=== PATIENT | female | born 1965 | race Caucasian/White ===

== ENCOUNTER 2022-11-07 10:20 | Outpatient (OUT) | payer OTHER, SELFPAY ==
--- NOTE | 2022-11-07 10:23 | MM_ITS ---
Patient: JAQUAN WILLETT Exam Date: 11/07/2022 : 1965 Gender:F Ordering : DR GURMEET MEYER Admission #: [id number] Family : ED BETHEA Order #: [id number] CLICK HERE TO VIEW EXAM RADIOLOGY REPORT PROCEDURE: MM TOMOSYNTHESIS SCREENING BI COMPARISON: MG MAMM SCREEN 3D HALIMA CAD, 11/06/2021. MG MAMM SCREEN 3D HALIMA CAD, 10/18/2020. INDICATIONS: Screening Calculator Name NCI Breast Cancer Risk Assessment Tool 5 Year Breast Cancer Risk 1.20% Lifetime Breast Cancer Risk 6.70% Personal Breast Cancer No Personal Ovarian Cancer No Treatments None Family Cancers Father with bone cancer at age ~50. LOCATION: [facility] BREAST COMPOSITION: Heterogeneously dense,which may obscure small masses. FINDINGS: DIAGNOSTIC CATEGORY 1--NEGATIVE. NO CHANGE FROM COMPARISON ASSESSMENT. Scattered benign-appearing calcifications are present. Scattered benign-appearing lymph nodes are present. RIGHT BREAST: No significant suspicious finding. LEFT BREAST: No significant suspicious finding. RECOMMENDATIONS: ROUTINE MAMMOGRAM AND CLINICAL EVALUATION IN 12 MONTHS. PLEASE NOTE: A NORMAL MAMMOGRAM DOES NOT EXCLUDE THE POSSIBILITY OF BREAST CANCER. A CLINICALLY SUSPICIOUS PALPABLE LUMP SHOULD BE BIOPSIED. Dictated by: Momo Kasper MD on 11/07/2022 at 11:54 Approved by: Momo Kasper MD on 11/07/2022 at 11:55
== END 2022-11-07 10:21 | disposition home or self-care (01) ==
LOC: MAMMO 10:20
PROVIDERS: PCP Nurse Practitioner Family; Visit Provider Internal Medicine
DX: Z12.31 Encounter for screening mammogram for malignant neoplasm of breast (principal); Z80.8 Family history of malignant neoplasm of other organs or systems
CPT/HCPCS: 77063; 77067

== ENCOUNTER 2023-11-09 09:53 | Outpatient (OUT) | payer OTHER, SELFPAY ==
--- NOTE | 2023-11-09 09:55 | MM_ITS ---
Patient Name: JAQUAN WILLETT MR#: [id number] : 1965 Exam Date: 11/09/2023 Ordering Doctor: DR ED BETHEA RADIOLOGY REPORT PROCEDURE: MM TOMOSYNTHESIS SCREENING BI COMPARISON: MM TOMOSYNTHESIS SCREENING BI, 11/07/2022. MG MAMM SCREEN 3D HALIMA CAD, 11/06/2021. MG MAMM SCREEN 3D HALIMA CAD, 10/18/2020. MG MAMM HALIMA SCRN W CAD DIG, 06/29/2013. INDICATIONS: Screening Calculator Name NCI Breast Cancer Risk Assessment Tool 5 Year Breast Cancer Risk 1.30% Lifetime Breast Cancer Risk 6.60% Personal Breast Cancer No Personal Ovarian Cancer No Treatments None Family Cancers Father with bone cancer at age ~50. LOCATION: [facility] BREAST COMPOSITION: The breasts are heterogeneously dense,which may obscure small masses. FINDINGS: DIAGNOSTIC CATEGORY 1--NEGATIVE. RIGHT BREAST: No significant suspicious finding. No significant change has occurred. LEFT BREAST: No significant suspicious finding. No significant change has occurred. RECOMMENDATIONS: ROUTINE MAMMOGRAM AND CLINICAL EVALUATION IN 12 MONTHS. PLEASE NOTE: A NORMAL MAMMOGRAM DOES NOT EXCLUDE THE POSSIBILITY OF BREAST CANCER. A CLINICALLY SUSPICIOUS PALPABLE LUMP SHOULD BE BIOPSIED. Dictated by: Ayden Sellers M.D. on 11/10/2023 at 15:23 Approved by: Ayden Sellers M.D. on 11/10/2023 at 15:29
== END 2023-11-09 09:54 | disposition home or self-care (01) ==
PROVIDERS: PCP Nurse Practitioner Family; Visit Provider Nurse Practitioner Family
DX: Z12.31 Encounter for screening mammogram for malignant neoplasm of breast (principal); Z80.8 Family history of malignant neoplasm of other organs or systems
CPT/HCPCS: 77063; 77067

== ENCOUNTER 2024-05-13 01:45 | Emergency (ER) | payer OTHER, SELFPAY ==
[2024-05-13 01:51] VITALS: BP 138/78; PULSE 78; TEMP 36.5; O2SAT 98; BMI 22.8
[2024-05-13 02:12] LABS: Bilirubin Urine NEGATIVE (NEGATIVE); Blood Urine LARGE (NEGATIVE); Clarity Urine CLEAR (CLEAR); Color Urine LT. YELLOW (YELLOW); Glucose Urine UA NEGATIVE (NEGATIVE); Ketones Urine NEGATIVE (NEGATIVE); Leukocyte Esterase Urine MODERATE (NEGATIVE); Nitrite Urine NEGATIVE (NEGATIVE); Protein Urine 100 mg/dL (NEG/TRACE); Specific Gravity Urine <=1.005 (1.005-1.025); Urobilinogen Urine 0.2 EU/dL (0.2-1.0); pH Urine 6.5 (5.0-9.0)
--- NOTE | 2024-05-13 02:20 | ED.FEMALEGU1 ---
HPI - Female Genitourinary General Chief complaint: Urogenital-Female Stated complaint: FREQUENT URINATION, ABDOMINAL PAIN Time Seen by Provider: 05/13/24 02:13 Source: patient Mode of arrival: walk-in Limitations: no limitations History of Present Illness HPI Narrative: This 59-year-old female who states she has stage II kidney disease presents for evaluation of acute onset of urinary frequency urgency dysuria and hematuria. Symptoms started earlier this evening. She denies any recent sexual intercourse or swimming or hot tub use. She has not had any fevers or chills. She denies any nausea or vomiting. She denies any flank pain. She has fullness in her bladder and states it feels like her bladder is falling out. She is anxious and concerned because of her kidney disease and states she is having a CT scan of her kidneys with contrast at [facility] later this week. She denies any chest pain or shortness of breath. Related Data Allergies Allergy/AdvReac Type Severity Reaction Status Date / Time No Known Drug Allergies Allergy Verified 05/13/24 01:54 Review of Systems ROS Status of ROS 10 or more systems reviewed and unremarkable except as noted in history and below PFSH PFSH Social History Little interest or pleasure in doing things: not at all Feeling down, depressed, or hopeless: not at all Exam Narrative Exam Narrative: Vital signs and Nursing Notes reviewed: Patient is afebrile with a normal pulse, normal blood pressure, she is not hypoxic with pulse ox of 97% on room air General: Awake, alert, oriented, anxious female, no respiratory distress she is sitting at the edge of the bed HEENT: Normocephalic atraumatic, mucous membranes are moist and pink, eyes are clear, normal conjunctiva, vision is grossly intacty Chest: Lungs are clear to auscultation with good air entry, there is no wheezing rhonchi or rales appreciated no accessory muscle use, patient is speaking in complete sentences-no chest wall tenderness to palpation CVS: Regular rate and rhythm S1-S2, no murmurs rubs or gallops, pulses are brisk and equal bilaterally ABD: Soft, nondistended, tenderness over the urinary bladder. There is no flank tenderness Extremities: Moving all extremities, no lower extremity tenderness or swelling noted, negative Homans' sign, pulses are brisk and equal bilaterally Skin: Normal in appearance without rash,pallor, petechiae or purpura Neuro: No focal deficits Constitutional Vital Signs, click to edit/add: Last Vital Signs Temp 97.7 F 05/13/24 01:51 Pulse 78 05/13/24 01:51 Resp 18 05/13/24 01:51 BP 138/78 05/13/24 01:51 Pulse Ox 98 05/13/24 01:51 O2 Del Method Room Air 05/13/24 01:51 Course Vital Signs Vital signs: Vital Signs Temperature 97.7 F 05/13/24 01:51 Pulse Rate 78 05/13/24 01:51 Respiratory Rate 18 05/13/24 01:51 Blood Pressure 138/78 05/13/24 01:51 Pulse Oximetry 98 05/13/24 01:51 Oxygen Delivery Method Room Air 05/13/24 01:51 Temperature 97.7 F 05/13/24 01:51 Pulse Rate 78 05/13/24 01:51 Respiratory Rate 18 05/13/24 01:51 Blood Pressure 138/78 05/13/24 01:51 Pulse Oximetry 98 05/13/24 01:51 Oxygen Delivery Method Room Air 05/13/24 01:51 MDM - Female Genitourinary MDM Narrative Medical decision making narrative: This 59-year-old female who has been diagnosed with stage II kidney failure presents for evaluation of urinary frequency urgency and dysuria. She started having hematuria prior to arrival. She has not had a fever. She has no nausea or vomiting. She has no flank pain. She is extremely anxious about her kidney disease. She states she was scheduled to have a CT scan of her abdomen and pelvis with IV contrast at [facility] next week. I told her that we would check her kidneys and give her some fluids and antibiotics for her infection. An IV was placed and routine labs are ordered. Her white count is 12.2. She has a stable hemoglobin. Electrolytes are normal with a GFR greater than 56. The results of her labs were discussed with her. Her urine is positive for blood and blood cells as well as leukocyte esterase. It was negative for nitrites. She was medicated with IV fluids, morphine as she did not want any NSAIDs due to her kidney disease, IV Rocephin and oral Pyridium. Her symptoms improved while in the emergency department. She was discharged home with Keflex and prescription for Pyridium. She was encouraged to drink plenty of fluids and return to the emergency department for fever, flank pain, abdominal pain or any concerns. Lab Data Labs: Lab Results 05/13/24 05/13/24 Range/Units 01:55 02:45 WBC 12.2 H (4.0-11.0) 10^3/uL RBC 4.55 (4.20-5.40) 10^6/uL Hgb 13.8 (12.0-16.0) g/dL Hct 40.5 (36.0-48.0) % MCV 89.0 (81.0-99.0) fL MCH 30.3 (26.7-34.0) pg MCHC 34.1 (29.9-35.2) g/dL RDW 11.7 (11.0-15.0) % Plt Count 247 (150-450) 10^3/uL MPV 10.1 (9.5-13.5) fL Neut % (Auto) 74.8 (43.0-75.0) % Lymph % (Auto) 19.4 L (20.5-60.0) % [place] % (Auto) 4.7 (1.7-12.0) % Eos % (Auto) 0.6 L (0.9-7.0) % Baso % (Auto) 0.3 (0.2-2.0) % Neut # (Auto) 9.1 H (1.4-6.5) 10^3/uL Lymph # (Auto) 2.4 (1.2-3.8) 10^3/uL [place] # (Auto) 0.6 (0.3-0.8) 10^3/uL Eos # (Auto) 0.1 (0.0-0.7) 10^3/uL Baso # (Auto) 0.0 (0.0-0.1) 10^3/uL Abs Immat Gran (auto) 0.03 (0.00-0.03) 10^3/uL Imm/Tot Granulo (auto) 0.2 (0.0-0.5) % Sodium 137 (136-145) mmol/L Potassium 4.0 (3.5-5.1) mmol/L Chloride 102 (98-107) mmol/L Carbon Dioxide 27.1 (21.0-32.0) mmol/L Anion Gap 11.9 BUN 18.0 (7.0-18.0) mg/dL Creatinine 1.00 (0.55-1.02) mg/dL Est GFR ( Amer) >60 (>=60 mL/min/1.73m^2) Est GFR (Non-Af Amer) 56 L (>=60 mL/min/1.73m^2) BUN/Creatinine Ratio 18.0 Glucose 114 H (74-106) mg/dL Calcium 9.2 (8.5-10.1) mg/dL Total Bilirubin 0.4 (0.2-1.0) mg/dL AST 22 (15-37) U/L ALT 30 (14-59) U/L Alkaline Phosphatase 95 (46-116) U/L Total Protein 7.0 (6.4-8.2) g/dL Albumin 3.8 (3.4-5.0) g/dL Globulin 3.2 g/dL Albumin/Globulin Ratio 1.2 Urine Color Lt. yellow (YELLOW) Urine Clarity Clear (CLEAR) Urine pH 6.5 (5.0-9.0) Ur Specific Clarissa <=1.005 A (1.005-1.025) Urine Protein 100 A (NEG/TRACE) mg/dL Urine Glucose (UA) Negative (NEGATIVE) mg/dL Urine Ketones Negative (NEGATIVE) mg/dL Urine Occult Blood Large A (NEGATIVE) Urine Nitrite Negative (NEGATIVE) Urine Bilirubin Negative (NEGATIVE) Urine Urobilinogen 0.2 (0.2-1.0) EU/dL Ur Leukocyte Esterase Moderate A (NEGATIVE) Urine RBC 20-50 A (0-2) #/HPF Urine WBC 20-50 A (NONE SEEN) #/HPF Ur Squamous Epith Cells Few A (NONE/RARE) #/LPF Urine Crystals None seen (None Seen) #/HPF Urine Bacteria Large A (NONE SEEN) #/HPF Urine Casts None seen (NONE SEEN) #/LPF Urine Mucus None seen (NONE SEEN) Ur Culture Indicated? Yes Discharge Plan Discharge Chief Complaint: Urogenital-Female Clinical Impression: Urinary tract infection, Acute hemorrhagic cystitis Patient Disposition: Home, Self-Care Time of Disposition Decision: 04:00 Condition: Good Print Language: Kinyarwanda Instructions: Urinary Tract Infection in Women (DC) Referrals: ED BETHEA [Primary Care Provider] - 1 week Discharge Date/Time: 05/13/24 04:11
[2024-05-13 02:27] LABS: Urine Microscopic Indicated YES
[2024-05-13] MEDS: ONDANSETRON PF 4 MG/2 ML VIAL IV (02:54)
[2024-05-13] MEDS: PHENAZOPYRIDINE 100 MG TABLET 200 MG PO (02:54)
[2024-05-13 02:55] LABS: WBC Urine 20-50 #/HPF (NONE SEEN)
[2024-05-13] MEDS: CEFTRIAXONE 1,000 MG in 0.9 % SODIUM CHLORIDE 50 ML 100 MG IV (02:55)
[2024-05-13] MEDS: 0.9 % SODIUM CHLORIDE 500 ML IV (02:55)
[2024-05-13 02:56] LABS: Mucus Urine NONE SEEN (NONE SEEN)
[2024-05-13] MEDS: MORPHINE SULFATE 4 MG/ML VIAL IV (02:56)
[2024-05-13 02:57] LABS: Bacteria Urine LARGE #/HPF (NONE SEEN); Cast Seen? NONE SEEN #/LPF (NONE SEEN); Crystals Seen? None Seen #/HPF (None Seen); RBC Urine 20-50 #/HPF (0-2); Squamous Epithelial Cell Urine FEW #/LPF (NONE/RARE); Urine Culture Indicated YES
[2024-05-13 03:10] LABS: Basophils Percent Auto 0.3 % (0.2-2.0); Eosinophils Absolute Auto 0.1 10^3/uL (0.0-0.7); Eosinophils Percent Auto 0.6 % (0.9-7.0); Hematocrit 40.5 % (36.0-48.0); Hemoglobin 13.8 g/dL (12.0-16.0); Immature Granulocytes Abs Auto 0.03 10^3/uL (0.00-0.03); Immature Granulocytes Pct Auto 0.2 % (0.0-0.5); Lymphocytes Absolute Auto 2.4 10^3/uL (1.2-3.8); Lymphocytes Percent Auto 19.4 % (20.5-60.0); Mean Corpuscular HGB Conc 34.1 g/dL (29.9-35.2); Mean Corpuscular Hemoglobin 30.3 pg (26.7-34.0); Mean Platelet Volume 10.1 fL (9.5-13.5); Monocytes Absolute Auto 0.6 10^3/uL (0.3-0.8); Monocytes Percent Auto 4.7 % (1.7-12.0); Neutrophils Absolute Auto 9.1 10^3/uL (1.4-6.5); Neutrophils Percent Auto 74.8 % (43.0-75.0); Platelet Count 247 10^3/uL (150-450); Red Blood Count 4.55 10^6/uL (4.20-5.40); Red Cell Distribution Width 11.7 % (11.0-15.0); White Blood Count 12.2 10^3/uL (4.0-11.0)
[2024-05-13 03:54] LABS: Alanine Aminotransferase 30 U/L (14-59); Albumin Globulin Ratio 1.2; Albumin Level 3.8 g/dL (3.4-5.0); Alkaline Phosphatase 95 U/L (46-116); Anion Gap 11.9; Aspartate Amino Transferase 22 U/L (15-37); Bilirubin Total 0.4 mg/dL (0.2-1.0); Calcium 9.2 mg/dL (8.5-10.1); Carbon Dioxide 27.1 mmol/L (21.0-32.0); Chloride 102 mmol/L (98-107); Estimated GFR (African America >60 (>=60 mL/min/1.73m^2); Estimated GFR (Non-African Ame 56 (>=60 mL/min/1.73m^2); Globulin 3.2 g/dL; Glucose 114 mg/dL (74-106); Sodium 137 mmol/L (136-145)
[2024-05-13 06:40] LABS: BOX Test Reference Lab FRMC; BOX Test Sent Out URINE CX
--- NOTE | 2024-05-15 16:55 | PC.NURSE ---
Patient urine culture completed and reviewed by Eri WILEY. Patient was already placed on Keflex in the ER, no change in treatment.
--- NOTE | 2024-05-19 14:48 | PC.NURSE ---
Patient Urine culture reviewed By Lola PACHECO and antibiotic change to Bactrim DS bidx5 days. patient updated on status and plan of care. called [facility] with script.
== END 2024-05-13 04:11 | disposition home or self-care (01) ==
PROVIDERS: Emergency Provider Emergency Medicine; PCP Nurse Practitioner Family
DX: N30.01 Acute cystitis with hematuria (principal); N19 Unspecified kidney failure
CPT/HCPCS: 36415; 80053; 81001; 85025; 87086; 87150; 87186; 96365; 96375; 99284; J0696; J2270; J2405

== ENCOUNTER 2024-11-09 09:52 | Outpatient (OUT) | payer OTHER, SELFPAY ==
--- OUTSIDE RECORDS SUMMARY | 2024-11-09 09:53 | XMS_ITS | Encounter Summary ---
Author Organization [facility] Sys tem Address [id number] [address] [place] [address] Care Team Providers Care Program Rep Name Role Phone Gena Flores APRN-SOCIAL SERVICE AGENCY DIRECTOR Primary Care Provider + Encounter Details Date Type Department Care Team (Late st Contact Info) Description 01/15/2024 Orders Only [facility] Internal Medicine - Family Medicine [address] [place] [address] Santi Garcia, DO [address] [place] [address] Social History Tobacco Use Types Packs/Day Years Used Date Smoking Tobacco: Never Smokeless Tobacco: Never Alcohol Use Standard Drinks/Week Comments Not Currently 0 (1 standard drink = 0.6 oz pur e alcohol) Overall Financial Resource Strain (CARDIA) Answe r Date Recorded How hard is it for you to pa y for the very basics like food, housing, medical care, and heating? Not hard at all 11/22/2022 PHQ-2 Answer Date Recorded Total Score 0 12/10/2023 PRAPARE - Transportation Answer Date Re corded In the past 12 months, has l ack of transportation kept you from medical appointments or from getting medications? No 11/08 In the past 12 months, has l ack of transportation kept you from meetings, work, or from getting things needed for daily living? No 11/22/2022 Housing Instability Answer Date Recorde d Are you worried or concerned that in the next two months you may not have stable housing that you own, rent or stay in as a part of a household? No 11/22/2022 Childcare Answer Date Recorded Childcare Unknown 10/20/2018 Employment Answer Date Recorded Employment Unknown 10/20/2018 Hunger Screening Answer Date Recorded Within the past 12 months we worried whether our food would run out before we got money to buy more. Never True 12/10/2023 Within the past 12 months th e food we bought just didn't last and we didn't have money to get more. Never True 12/10/2023 Comments No Sex and Gender Information Value Date Recorded Sex Assigned at Female 11/25/2022 11:59 AM EDT Legal Sex Female 11:31 AM EDT Gender Identity Female 11/25/2022 11:59 AM EDT Sexual Orientation Straight 11/25/2022 11 :59 AM EDT documented as of this encounter Plan of Treatment Not on file documented as of this encounter Visit Diagnoses Not on filedocumented in this encounter Additional Health Concerns Assessment Noted Time PHQ-9 Depression Total Score: 0 12/10/19 8:33 AM EDT documented as of this encounter Care Teams Program Rep Relationship Specialty Start Date End Date Gena Flores, ELECTRICAL ASSEMBLY TECHNICIAN-SOCIAL SERVICE AGENCY DIRECTOR [address] [place] [address] PCP - General Internal Medicine 09/16/23 03/20/24 documented as of this encounter
--- OUTSIDE RECORDS SUMMARY | 2024-11-09 09:53 | XMS_ITS | Encounter Summary ---
Author Organization [employer] Sys tem Address [id number] [address] [place] [address] Care Team Providers Care Home Stager Name Role Phone Gena Flores APRN-SHEARING SHED HAND Primary Care Provider + Encounter Details Date Type Department Care Team (Late st Contact Info) Description 05/18/2023 [facility] [address] [place] [id number] Simi Edmondson CMA Social History Tobacco Use Types Packs/Day Years [...] PHQ-2 Answer Date Recorded Total Score 0 11/25/2022 PRAPARE - Transportation Answer Date Re corded [...] got money to buy more. Never True 11/22/2022 Within the past 12 months th e food we bought just didn't last and we didn't have money to get more. Never True 11/22/2022 Comments Unknown Sex and Gender Information Value Date Recorded Sex Assigned at Female 11/25/2022 11:59 AM EDT Legal Sex Female 11:31 AM EDT Gender Identity Female 11/25/2022 11:59 AM EDT Sexual Orientation Straight 11/25/2022 11 :59 AM EDT documented as of this encounter Miscellaneous Notes * Telephone Encounter - Simi Edmondson CMA - 05/18/2023 3:11 PM EST This patient has taken the 9:00am time for her procedure since there was a cancellation on . documented in this encounter Plan of Treatment Not on file documented as of this encounter Visit Diagnoses Not on filedocumented in this encounter Additional Health Concerns Assessment Noted Time PHQ-9 Depression Total Score: 0 11/26/19 23 8:07 AM EDT documented as of this encounter Care Teams Home Stager Relationship Specialty Start Date End Date Gena Flores APRN-ANTONIO [address] [place] [address] PCP - General Internal Medicine 09/16/23 03/20/24 documented as of this encounter
--- OUTSIDE RECORDS SUMMARY | 2024-11-09 09:53 | XMS_ITS | Encounter Summary ---
[facility] Address [id number] [address] [place] [address] Care Team Providers Care Rpg Programmer Analyst Name Role Phone Gena Flores APRN-FRUIT PACKER Primary Care Provider + Encounter Details Date Type Department Care Team (Late st Contact Info) Description 01/13/2024 Orders Only [facility] Internal Medicine - Family Medicine [address] [place] [address] Simi Edmondson CMA Asymptomatic menopause Social History Tobacco Use Types Packs/Day Years [...] on file documented as of this encounter Procedures Procedure Name Priority Date/Time Associated Diagnosis Comments DEXA SCAN CENTRAL SKELETAL Routine 01/13/2024 12:21 PM EDT Asymptomatic menopause documented in this encounter Results * Dexa scan central skeletal (01/13/2024 12:21 PM EDT) Anatomical Region Laterality Modality N/A Radiographic [place] ging us Santi Garcia DO IMG DXA ORDERABLES Final Res ult documented in this encounter Visit Diagnoses Diagnosis Asymptomatic menopause documented in this encounter Additional Health Concerns Assessment Noted Time PHQ-9 Depression Total Score: 0 12/10/19 8:33 AM EDT documented as of this encounter Care Teams Rpg Programmer Analyst Relationship Specialty Start Date End Date Gena Flores, DOUBLE BACKER-FRUIT PACKER [address] [place], [place] [address] [address] PCP - General Internal Medicine 09/16/23 03/20/24 documented as of this encounter
--- OUTSIDE RECORDS SUMMARY | 2024-11-09 09:53 | XMS_ITS | Encounter Summary ---
Author Organization [facility] Address [address] [place] [address] Care Team Providers Care Textile Converter Name Role Phone Leo Patel MD Unavailable [phone] Herve Bronson DO Unavailable [phone] Niurka Gotti CNP Primary Care Provider [phone] Tc Browning MD Unavailable [phone] Source Comments In the event this information is protected by the Federal Confidentiality of Alcohol and Drug AbusePatient Records regulations: The Federal rules restrict any use of the information to criminally investigate or prosecute any alcohol or drug abuse patient.[facility] Encounter Details Date Type Department Care Team (Late st Contact Info) Description 11/24/2023 Patient Msg Cardiology [address] [place] [address] Leo Patel MD [address] [place] [address] Appointment Request Social History Tobacco Use Types Packs/Day Years Used Date Smoking Tobacco: Never Smokeless Tobacco: Never Alcohol Use Standard Drinks/Week Comments No 0 (1 standard drink = 0.6 oz pur e alcohol) Area Deprivation Index Answer Date Francois rded National Score (1-100), lower number is lower ri sk 63 11/13/2023 State Score (1-10), lower number is lower risk 4 11/13/2023 Data from: https://www.neighborhoodatlas.medicine.[facility] [place]/. Last address used for calculation [address] 11/13/2023 Comments No Sex and Gender Information Value Date Recorded Sex Assigned at Not on file Legal Sex Female 8:06 AM EST Gender Identity Not on file Sexual Orientation Not on file documented as of this encounter Plan of Treatment Upcoming Encounters Date Type Department Care Team (Late st Contact Info) Description 11/25/2024 1:30 PM EDT Procedure Cardiology [address] [place], [place] [id number] Dx: Aortic Valve bicuspid, mild regurgitaion- 11/25/2024 2:30 PM EDT Appointment Cardiology [address] [place] [address] Dx: Aortic Valve bicuspid, mild regurgitaion- 11/25/2024 3:45 PM EDT Office Visit Cardiology [address] [place] [address] Leo Patel MD [address] [place] [address] Dx: Aortic Valve bicuspid, mild regurgitaion- documented as of this encounter Visit Diagnoses Not on filedocumented in this encounter Care Teams Textile Converter Relationship Specialty Start Date End Date Niurka Gotti, PEN RULER OPERATOR [address] [place] [address] PCP - General Family Medicine 12/11/23 Leo Patel MD [address] [place] [address] Commercial Accountant Cardiology 12/11/23 Herve Bronson DO [address] [place] [address] Obstetrics 12/11/23 Tc Browning MD [address] [place] [address] Surgeon Cardiac Surg 12/14/23 documented as of this encounter
--- OUTSIDE RECORDS SUMMARY | 2024-11-09 09:53 | XMS_ITS | Encounter Summary ---
Author Organization [facility] Address [address] [place] [address] Care Team Providers Care Almond Blancher Operator Name Role Phone Leo Patel MD Unavailable [phone] Herve Bronson DO Unavailable [phone] Niurka Gotti CNP Primary Care Provider [phone] Tc Browning MD Unavailable [phone] Source Comments In the event this information is protected by the Federal Confidentiality of Alcohol and Drug AbusePatient Records regulations: The Federal rules restrict any use of the information to criminally investigate or prosecute any alcohol or drug abuse patient.[facility] Encounter Details Date Type Department Care Team (Latest Contact Info) Description 11/14/2023 Get Medical Advice Cardiology [address] [place] [address] Leo Patel MD [address] [place] [address] Calcification of the Bicuspid Aortic Valve Social History Tobacco Use Types Packs/Day Years Used Date Smoking Tobacco: Never Smokeless Tobacco: Never Alcohol Use Standard Drinks/Week Comments No 0 (1 standard drink = 0.6 oz pur e alcohol) Area Deprivation Index Answer Date Francois rded National Score (1-100), lower number is lower ri sk 63 11/13/2023 State Score (1-10), lower number is lower risk 4 11/13/2023 Data from: https://www.neighborhoodatlas.medicine.[facility]/. Last address used for calculation [address] [...] Description 11/25/2024 1:30 PM EDT Procedure Cardiology [address] [place] [address] Dx: Aortic Valve bicuspid, mild regurgitaion- 11/25/2024 2:30 PM EDT Appointment Cardiology [address] [place] [address] Dx: Aortic Valve bicuspid, mild regurgitaion- 11/25/2024 3:45 PM EDT Office Visit Cardiology [address] [place] [address] Leo Patel MD [address] [place] [address] Dx: Aortic Valve bicuspid, mild regurgitaion- documented as of this encounter Visit Diagnoses Not on filedocumented in this encounter Care Teams Almond Blancher Operator Relationship Specialty Start Date End Date Niurka Gotti CNP [address] [place] [address] PCP - General Family Medicine 12/11/23 Leo Patel MD [address] [place] [address] Sheet Metal Assembler Cardiology 12/11/23 Herve Bronson DO [address] [place] [address] Obstetrics 12/11/23 Tc Brwoning MD [address] [place] [address] Surgeon Cardiac Surg 12/14/23 documented as of this encounter
--- OUTSIDE RECORDS SUMMARY | 2024-11-09 09:53 | XMS_ITS | Clinical Summary ---
Author Organization [facility] Address [address] [place] [address] Care Team Providers Care Print Line Tailer Name Role Phone Leo Patel MD Unavailable [phone] Herve Bronson DO Unavailable [phone] Niurka Gotti CNP Primary Care Provider [phone] Tc Browning MD Unavailable [phone] Allergies No known active allergies Medications Ascorbic Acid (VITAMIN C) 1,000 mg tablet Take 1,000 mg by mouth once daily. Active cholecalcifero l (VITAMIN D-3) 5,000 unit tab Take 5,000 Units by mouth once daily. Active OTC PRODUCT three times a day. Cataplex B Active CALCIUM LACTATE ORAL Take by mouth. Ac tive OTC PRODUCT three times a day. Cardiotrophin Active OTC PRODUCT three times a day. Cardioplus Active OTC PRODUCT three times a day. Ostrophin Active OTC PRODUCT three times a day. Calcifood Active OTC PRODUCT three times a day. Aguila Ma Plus Active OTC PRODUCT three times a day. Immuplex Active OTC PRODUCT three times a day. Andrographis Complex Active Amoxicillin 500 mg tablet Take 4 tablets by mouth as directed. Take 30-60mins prior to dental 4 tablet 11 5 Active Active Problems Problem Noted Date Diagnosed Date Spasm of muscle 03/19/2007 Encounters Date Type Department Care Team Description 09/05/2024 Patient Update Cardiology [address] [place], [place] [id number] Leo Patel MD 09/05/2024 Orders Only Cardiology [address] [place] [phone] Leo Patel MD 09/05/2024 Telephone Cardiology [address] [place] [address] [phone] Leo Patel MD Medication Request from Last 3 Months Family History Medical History Relation Comments Adopted [Other] Other Does not know fa pato history None Other Kids are normal Relation Status Comments Other Social History Tobacco Use Types Packs/Day Years Used Date Smoking Tobacco: Never Smokeless Tobacco: Never Tobacco Cessation:Counseling Given: Not Answered Alcohol Use Standard Drinks/Week Comments No 0 (1 standard drink = 0.6 oz pur e alcohol) Area Deprivation Index Answer Date Francois rded National Score (1-100), lower number is lower ri sk 63 11/13/2023 State Score (1-10), lower number is lower risk 4 11/13/2023 Data from: https://www.neighborhoodatlas.medicine.[facility].edu/. Last address used for calculation [address] 11/13/2023 Comments No Sex and Gender Information Value Date Recorded Sex Assigned at Not on file Legal Sex Female 8:06 AM EST Gender Identity Not on file Sexual Orientation Not on file Last Filed Vital Signs Vital Sign Reading Time Taken Comments Blood Pressure 132/70 05/18/2024 11:55 AM EST Pulse 82 05/18/2024 11:55 AM EST Temperature 36.8 C (98.2 F) 05/18/2024 11:55 AM EST Respiratory Rate 16 06/24/2006 9:04 AM EST Oxygen Saturation 99% 05/18/2024 11:55 AM EST Inhaled Oxygen Concentration - - Weight 68.7 kg (151 lb 8 oz) 05/18/2024 11:55 AM EST Height 172.7 cm (5' 8 ) 05/18/2024 11:55 AM EST Body Mass Index 23.04 05/18/2024 11:55 AM EST Plan of Treatment Upcoming Encounters Date Type Department Care Team (Late st Contact Info) Description 11/25/2024 1:30 PM EDT Procedure Cardiology [address] [place] [id number] Dx: Aortic Valve bicuspid, mild regurgitaion- 11/25/2024 2:30 PM EDT Appointment Cardiology [address] [place] [address] [phone] Dx: Aortic Valve bicuspid, mild regurgitaion- 11/25/2024 3:45 PM EDT Office Visit Cardiology [address] [place] [phone] Leo Patel MD [address] [place] [phone] Dx: Aortic Valve bicuspid, mild regurgitaion- Health Maintenance Due Date Last Done Comments Anxiety Screening 1981 Depression Screening 1981 HIV Screening 1981 Hepatitis C Screening 1981 DTaP,Tdap,Td Vaccine (1 - Tdap) 1982 Cervical Cancer Screening [address] Colonography 2008 Cologuard (FIT-DNA) 2008 Fecal Occult Blood 2008 Sigmoidoscopy 2008 Pneumococcal Vaccine: 50+ (1 of 1 - PCV) 2013 Shingrix Vaccine (1 of 2) 2013 Covid-19 Vaccine (1 - 2023-2 5 season) 2024 Colonoscopy 05/20/2024 05/20/2023 Colorectal Cancer Screening 05/20/2024 Influenza Vaccine (#1) 2025 , 02/18/2023, 03/11/2022, Additional history exists Diabetes Screening 12/09/2026 12/10/2023, 0 11/25/2022, 07/29/2006 Lipid Screening 12/09/2028 12/10/2023, 11/25/2022 RSV Vaccine (1 - 1-dose 75+ series) 2038 Goals Goal Patient Goal Type Associated Problems Recent Progress Patient-Stated? Author Blood Pressure < 140/90 Blood Pressure 132/70( 025 11:55 AM EST) No Tc Browning MD Procedures Procedure Name Priority Date/Time Associated Diagnosis Comments BASIC METABOLIC PANEL Routine 07/29/2006 2:28 PM EDT Anal Or Rectal Pain from Last 3 Months or Most Recently Relevant to Health Maintenance Results * BASIC METABOLIC PNL (07/29/2006 2:28 PM EDT) Glucose 88 65 - 100 mg/dL [facility] BUN 10 8 - 25 mg/dL [facility] Creatinine 0.7 0.7 - 1.4 mg/dL [facility] Sodium 138 132 - 148 mmol/L [facility] Potassium 3.6 3.5 - 5.0 mmol/L [facility] Chloride 101 98 - 110 mmol/L [facility] CO2 25 23 - 32 mmol/L [facility] Anion Gap 12 0 - 15 mmol/L [facility] Calcium 9.1 8.5 - 10.5 mg/dL [facility] Blood specimen (specimen) BLOOD SPECIMEN / Unknown 07/29/2006 2:28 PM EDT Robert Ceballos [facility] Final Result [facility] [address] [place] [address] from Last 3 Months or Most Recently Relevant to Health Maintenance Insurance [facility] Care Teams Print Line Tailer Relationship Specialty Start Date End Date Niurka Gotti, CALENDER MACHINE OPERATOR HELPER [address] [place] [address] PCP - General Family Medicine 12/11/23 Leo Patel MD [address] [place] [address] Residential Field Manager Cardiology 12/11/23 Herve Bronson DO [address] [place] [phone] Obstetrics 12/11/23 Tc Browning MD [address] [place] [address] Surgeon Cardiac Surg 12/14/23
--- OUTSIDE RECORDS SUMMARY | 2024-11-09 09:53 | XMS_ITS | Encounter Summary ---
Author Organization [facility] tem Address [id number] [address] [place] [address] Care Team Providers Care Qualification Engineer Name Role Phone Gena Flores Primary Care Provider + Encounter Details Date Type Department Care Team (Late st Contact Info) Description 11/10/2022 Orders Only [facility] Internal Medicine - Family Medicine [address] [place] [address] External, Scanning Provider Social History Tobacco Use Types Packs/Day Years Used Date Smoking Tobacco: Never Assessed Childcare Answer Date Recorded Childcare Unknown 10/20/2018 Employment Answer Date Recorded Employment Unknown 10/20/2018 Comments Unknown Sex and Gender Information Value Date Recorded Sex Assigned at Female 11/25/2022 11:59 AM EDT Legal Sex Female 11:31 AM EDT Gender Identity Female 11/25/2022 11:59 AM EDT Sexual Orientation Straight 11/25/2022 11 :59 AM EDT documented as of this encounter Plan of Treatment Not on file documented as of this encounter Procedures Procedure Name Priority Date/Time Associated Diagnosis Comments HM MAMMOGRAPHY Routine 11/07/2022 documented in this encounter Results * HM MAMMOGRAPHY (11/07/2022) Anatomical Region Laterality Modality Other us Scanning Provider External HEALTH MAINTENANCE Fi nal Result documented in this encounter Visit Diagnoses Not on filedocumented in this encounter Care Teams Qualification Engineer Relationship Specialty Start Date End Date Gena Flores APRN-CNP [address] [place] [address] PCP - General Internal Medicine 09/16/23 03/20/24 documented as of this encounter
--- OUTSIDE RECORDS SUMMARY | 2024-11-09 09:53 | XMS_ITS | Encounter Summary ---
Author Organization [facility] Address [facility] [id number] [address] [place] [address] Care Team Providers Care Biodiesel Production Technician Name Role Phone Gena Flores APRN-WATER PIPE INSTALLER Primary Care Provider + Encounter Details Date Type Department Care Team (Late st Contact Info) Description 11/25/2022 Orders Only [facility] Internal Medicine - Family Medicine [address] [place] [address] Niurka Gotti, CUSTOMER SERVICE DRIVER-CORPORATE JOB TITLES [address] [place] [address] Social History Tobacco Use Types Packs/Day Years [...] Procedure Name Priority Date/Time Associated Diagnosis Comments HEPATITIS C(HCV) ANTIBODY W/REFLEX TO PCR Routine 09/12/2017 4:00 PM EDT documented in this encounter Results * Hepatitis C(HCV) Ab w/ Reflex to PCR (09/12/2017 4:00 PM EDT) Niurka Gotti APRN-CORPORATE JOB TITLES LAB BLOOD ORDERABLES Final Result MANUALLY TRANSCRIBED RESULTS documented in this encounter Visit Diagnoses Not on filedocumented in this encounter Additional Health Concerns Assessment Noted Time PHQ-9 Depression Total Score: 0 11/26/19 23 8:07 AM EDT documented as of this encounter Care Teams Biodiesel Production Technician Relationship Specialty Start Date End Date Gena Flores APRN-ANTONIO [address] [place] [address] PCP - General Internal Medicine 09/16/23 03/20/24 documented as of this encounter
--- OUTSIDE RECORDS SUMMARY | 2024-11-09 09:53 | XMS_ITS | Encounter Summary ---
Author Organization [email or web address] Address [facility] [id number] [address] [place] [address] Care Team Providers Care Bridge Design Engineer Name Role Phone Gena Flores APRN-MECHANIC AND WELDER Primary Care Provider + Encounter Details Date Type Department Care Team (Late st Contact Info) Description 04/14/[address] [facility] [address] [place] [phone] Simi Edmondson CMA Social History Tobacco Use [...] Miscellaneous Notes * Telephone Encounter - Simi Edmondosn CMA - 04/14/2023 2:11 PM EST This patient is scheduled for a Screening Colonoscopy on May 20 at 10:30am . Please send herSuTabs to [facility]. She took a coupon for them * Telephone Encounter - Ok Acevedo DO - 04/14/2023 2:11 PM EST Message noted. H&P done. Rx Sutab sent to pharmacy documented in this encounter Plan of Treatment Not on file documented as of this encounter Visit Diagnoses Not on filedocumented in this encounter Additional Health Concerns Assessment Noted Time PHQ-9 Depression Total Score: 0 11/26/19 23 8:07 AM EDT documented as of this encounter Care Teams Bridge Design Engineer Relationship Specialty Start Date End Date Gena Flores, HYBRID TECHNOLOGIST-MECHANIC AND WELDER [address] [place] [address] PCP - General Internal Medicine 09/16/23 03/20/24 documented as of this encounter
--- OUTSIDE RECORDS SUMMARY | 2024-11-09 09:53 | XMS_ITS | Clinical Summary ---
Author Organization [facility] Address [address] [facility] [place] [address] Care Team Providers Care Electrical Tester Name Role Phone Unallocated, Noms Provider Primary Care Provi jaycee Niurka Gotti MD Unavailable Allergies No known active allergies Medications cholecalciferol (Vitamin D-3) 125 MCG (5000 UT) capsule Take 5,000 Units by mouth in the morning. Active CALCIUM PO Take by mouth. Active Multiple Vitamins-Mineral s (DAILY HEART HEALTH SUPPORT PO) Take by mouth Active Multiple Vitamins-Mineral s (WOMENS BONE HEALTH PO) Take by mouth Active B Complex Vitamins (VITAMIN B COMPLEX PO) Take by mouth Active Ascorbic Acid (VITAMIN C PO) Take 1,000 mg by mouth in the morning. Active clobetasol (Temovate) 0.05 % external solution if needed 06/16/2023 Active Active Problems Problem Noted Date Diagnosed Date Bicuspid aortic valve determined by imaging 11/08 Cystocele, unspecified 11/25/2022 Stress incontinence of urine 11/25/2022 Other muscle spasm 03/19/2007 Immunizations Immunization Administration Dates Next Due Influenza, injectable, quadr ivalent, preservative free 01/27/2019,02/03/2018,02/04/2017 Influenza, recombinant, quad rivalent, injectable, preservative free 02/18/2023,03/11/2022,12/26/2019 Family History Medical History Relation Name Comments Alcohol abuse Father Cancer Father larynx cancer Father removed Relation Name Status Comments Father Mother Alive no relationship Social History Tobacco Use Types Packs/Day Years Used Date Smoking Tobacco: Never Smokeless Tobacco: Never Tobacco Cessation:Counseling Given: Not Answered Alcohol Use Standard Drinks/Week Comments Never 0 (1 standard drink = 0.6 oz pur e alcohol) AUDIT-C Answer Date Recorded Q1: How often do you have a drink containing alcohol? Never 12/07/2023 Q2: How many drinks containi ng alcohol do you have on a typical day when you are drinking? Patient does not drink Q3: How often do you have si x or more drinks on one occasion? Never 12/07/2023 PHQ-2 Answer Date Recorded Patient Health Questionnaire-2 Score 0 12/07/2023 Comments No Sex and Gender Information Value Date Recorded Sex Assigned at Female 12/08/2022 3:59 PM EDT Legal Sex Female 8:06 PM EDT Gender Identity Female 12/08/2022 3:59 PM EDT Sexual Orientation Straight 12/08/2022 3: 59 PM EDT Last Filed Vital Signs Vital Sign Reading Time Taken Comments Blood Pressure 118/82 12/07/2023 10:22 AM EDT Pulse - - Temperature - - Respiratory Rate - - Oxygen Saturation - - Inhaled Oxygen Concentration - - Weight 69.4 kg (153 lb) 12/07/2023 10:22 AM EDT Height 172.7 cm (5' 8 ) 12/07/2023 10:22 AM EDT Body Mass Index 23.26 12/07/2023 10:22 AM EDT Plan of Treatment Upcoming Encounters Date Type Department Care Team (Late st Contact Info) Description 12/07/2024 11:30 AM EDT Office Visit [facility] [address] [facility] [address] [place] [phone] Herve Bronson, DO [address] [facility] [address] [place] [address] Health Maintenance Due Date Last Done Comments CT Colonography 1963 FIT-DNA 1963 FIT 1963 FOBT 1963 Sigmoidoscopy 1963 Mammogram 2003 Influenza Vaccine (#1) 2025 3, 03/11/2022, 12/26/2019, Additional history exists Pap Smear 12/06/2026 12/07/2023 Cervical Cancer Screening 11/26/2027 HPV/Cotest 11/26/2027 11/25/2022 Colonoscopy 05/20/2033 05/20/2023 Colorectal Cancer Screening 05/20/2033 Procedures Procedure Name Priority Date/Time Associated Diagnosis Comments THINPREP TIS PAP AND HPV MRNA E6/E7 WITH REFLEX TO HPV 16,18/45 Routine 12/07/2023 12:00 AM EDT Encounter for Papanicolaou smear of cervix from Last 3 Months or Most Recently Relevant to Health Maintenance Results * THINPREP TIS PAP AND HPV MRNA E6/E7 WITH REFLEX TO HPV 16,18/45 (12/07/2023 12:00 AM EDT) CLINICAL INFORMATION [facility] Comment:None given LMP [facility] Comment:2014 PREV. PAP [facility] Comment:NEG PREV. BX [facility] Comment:None given SOURCE [facility] Comment:None given STATEMENT OF ADEQUACY [facility] Comment:SATISFACTORY FOR WILBERTO LUATION INTERPRETATION/RESU LT [facility] Comment: Cytology Results: Negative for intraepithelial lesion or malignancy. Atrophic pattern; predominantly parabasal cells COMMENT [facility] Comment: This Pap test has been evaluated with computer assisted technology. LOCK SETTER [facility] Comment: ELP, CT(ASCP) CT Screening Location: [place] [address] (ALWAYS MESSAGE) [facility] Comment: EXPLANATORY NOTE: The Pap is a screening test for cervical cancer. It is not a diagnostic test and is subject to false negative and false positive results. It is most reliable when a satisfactory sample, regularly obtained, is submitted with relevant clinical findings and history, and when the Pap result is evaluated along with historic and current clinical information. HPV MRNA E6/E7 Not Detected Not Detected [facility] Comment: Methodology: Websphere Architect-Mediated Amplification This assay detects E6/E7 viral messenger RNA (mRNA) from 14 high-risk HPV types (16,18,31,33,35,39,45,51,52,56,58,59,66,68). Cervical sources are required for HPV testing. If a vaginal source from a patient who has had a total hysterectomy with removal of cervix was submitted, please contact the testing laboratory for alternative testing options. For additional information, please refer to http://education.121cast/faq/HDY516x9 (This link if provided for information/ educational purposes only.) Swab (Endocervix) 12/07/2023 024 3:04 AM EDT Narrative Resulting Agency Comment Performing Organization Information Site ID: [id number] Name: [facility] Address: [address] [place] [address], [address] [place] [phone] Director: Judd Silva MD Site ID: [id number] [facility]: [facility] Address: [address] [place] [phone] Director: Ayan Blount us Herve Bronson DO LAB CYTOLOGY ORDERABLES Luciana chester Result [facility] from Last 3 Months or Most Recently Relevant to Health Maintenance Insurance [employer] Care Teams Electrical Tester Relationship Specialty Start Date End Date Unallocated, Noms MD [place] [address] [place] [address] PCP - General 02/03/23 Niurka Gotti MD [address] [place] [address] Referring Physician Family Medicine 02/03/23
--- OUTSIDE RECORDS SUMMARY | 2024-11-09 09:53 | XMS_ITS | Encounter Summary ---
Author Organization [facility] Address [id number] [address] [place] [address] Care Team Providers Care Ledger Poster Name Role Phone Gena Flores APRN-GLOBAL COMPENSATION DIRECTOR Primary Care Provider + Encounter Details Date Type Department Care Team (Late st Contact Info) Description 01/14/2024 Orders Only [facility] Internal Medicine - Family Medicine [address] [place] [address] Santi Garcia, DO [address] [place] [address] Social History Tobacco Use Types Packs/Day Years [...] documented as of this encounter Care Teams Ledger Poster Relationship Specialty Start Date End Date Gena Flores, TRACK PATROL-GLOBAL COMPENSATION DIRECTOR [address] [place] [address] PCP - General Internal Medicine 09/16/23 03/20/24 documented as of this encounter
--- OUTSIDE RECORDS SUMMARY | 2024-11-09 09:53 | XMS_ITS | Clinical Summary ---
Author Organization [facility] Address [id number] [address] [place] [address] Care Team Providers Care Hand Former Helper Name Role Phone Unavailable Primary Care Provider Unavailabl e Allergies No known active allergies Medications calcium carbonate (OS-GINO) 600 mg elemental (1,500 mg) tablet Take 1 tablet (600 mg total) by mouth in the morning and 1 tablet (600 mg total) in the evening. Take with meals. Active zinc gluconate 50 mg tablet Take 1 tablet (50 mg total) by mouth in the morning. Active cholecalciferol , vitamin D3, 5,000 units tablet Take 1 tablet (5,000 Units total) by mouth in the morning. Active ascorbic acid, vitamin C, (VITAMIN C) 1000 mg tablet Take 1 tablet (1,000 mg total) by mouth in the morning. Active B complex-vitamin C-folic acid (NEPHROCAP) 1 mg capsule Take 1 capsule by mouth in the morning. Active clobetasoL (TEMOVATE) 0.05 % external solution if needed 06/16/2023 Active Active Problems Problem Noted Date Diagnosed Date Stage 2 chronic kidney disease 01/13/2024 Bicuspid aortic valve determined by imaging 11/08 Cystocele, unspecified 11/25/2022 Stress incontinence of urine 11/25/2022 Resolved Problems Problem Noted Date Diagnosed Date Resolved Date Colon cancer screening 04/21/202301/12 Muscle spasm 03/19/2007 01/13/2024 Immunizations Immunization Administration Dates Next Due Influenza, Injectable, quadrivalent (PF) 019,02/03/2018,02/04/2017 Influenza, Recombinant, Quad rivalent, Injectable, Preserv 02/18/2023,03/11/2022,12/26/2019 Family History Medical History Relation Name Comments Gout Brother Throat cancer Father Gout Mother Heart disease Mother Arthritis Son Relation Name Status Comments Brother Alive Father Mother Alive Son Alive Social History Tobacco Use Types Packs/Day Years Used Date Smoking Tobacco: Never Smokeless Tobacco: Never Tobacco Cessation:Counseling Given: Not Answered Alcohol Use Standard Drinks/Week Comments Not Currently [...] Orientation Straight 11/25/2022 11 :59 AM EDT Last Filed Vital Signs Vital Sign Reading Time Taken Comments Blood Pressure 118/62 12/10/2023 8:34 AM EDT Pulse 71 12/10/2023 8:34 AM EDT Temperature 36.7 C (98 F) 12/10/2023 8:34 AM EDT Respiratory Rate 18 12/10/2023 8:34 AM EDT Oxygen Saturation 99% 12/10/2023 8:34 AM EDT Inhaled Oxygen Concentration - - Weight 69.4 kg (153 lb) 12/10/2023 8:34 AM EDT Height 172.7 cm (5' 8 ) 12/10/2023 8:34 AM EDT Body Mass Index 23.26 12/10/2023 8:34 AM EDT Plan of Treatment Health Maintenance Due Date Last Done Comments Mammogram 11/08/2024 11/09/2023, 11/07/2022 Adult BMI Screening 12/09/2024 12/10/2023 DTaP,Tdap and Td Vaccines (1 - Tdap) 12/09/2024 Postponed from 1982 (Patient Refused) Depression Screening 12/09/2024 12/10/2023 Zoster (Shingles) Vaccine (1 of 2) 12/09/2024 Postponed from 2013 (Patient Refused) Influenza Vaccine 01/09/2025 02/18/2023, , 12/26/2019, Additional history exists Tobacco Screening 01/12/2025 01/13/2024 Pap Smear 11/25/2025 11/25/2022, 11/08, 11/25/2022 Colonoscopy Discontinued 05/20/2023, 05/20/2023 Medical Devices Not on file Procedures Procedure Name Priority Date/Time Associated Diagnosis Comments HM MAMMOGRAPHY Routine 11/09/2023 10:02 AM EDT PROVATION COLONOSCOPY Routine 05/20/2023 8:35 AM EST PAP SMEAR Routine 11/25/2022 5:04 AM EDT Encounter for annual routine gynecological examination from Last 3 Months or Most Recently Relevant to Health Maintenance Results * HM MAMMOGRAPHY (11/09/2023 10:02 AM EDT) Anatomical Region Laterality Modality Other us Not In System Ref Prov HEALTH MAINTENANCE Final Result * Colonoscopy Report (05/20/2023 8:35 AM EST) Narrative SYSTEMGENERATED, DOCUMENTATION - 05/20/2023 8:35 AM EST This order has been auto-finalized for image and report archival in PACs. *For full report details, please reach out to your physician. This image is visible to you in MyChart.* Ok Acevedo DO IMG OR IMG ORDERABLES Final Resu lt * Pap Smear (11/25/2022 5:04 AM EDT) 11/25/2022 5:04 AM EDT 11/25/2022 5:05 AM EDT Narrative COPATH - 11/26/2022 12:27 PM EDT [facility] [address] [place] [address] Gynecologic Cytology Consultation Patient Name:RENATA BIRCH:1965 (Age: 57)Gender:FTaken:11/25/2022Reported:11/26/2022hysician(s):Niurka Gotti [facility] ([phone])Copy To: Rec. #:[id number]: #[id number] Final Cytologic Interpretation ThinPrep Pap Test (Cervical): Satisfactory for evaluation. NEGATIVE FOR INTRAEPITHELIAL LESION OR MALIGNANCY. The cytologic changes of atrophy are noted. emmaja/11/26/2022 Interpretation performed at [facility], [address] [place] [address], License number: [id number]. Electronically Signed Out By MK Cheng(ASCP) Date of Last Menstrual Period: (None Given) Other Clinical Conditions: Postmenopausal Z01.419 Fund Director exam wo/abn findings Source of Specimen ThinPrep Pap Test (Cervical) Thin Prep Pap (AUTOMATIC DISPENSER MECHANIC) Fee Code(s): G0145 Niurka Gotti CONDUCTOR SYMPHONIC ORCHESTRA-BRANCH OFFICER PATHOLOGY/CYTOLOGY ORDERABL ES Final Result COPATH from Last 3 Months or Most Recently Relevant to Health Maintenance Insurance [employer]
--- OUTSIDE RECORDS SUMMARY | 2024-11-09 09:53 | XMS_ITS | Encounter Summary ---
Author Organization [facility] Address [address] [place] [address] Care Team Providers Care Needle Grinder Name Role Phone Unallocated, Noms Provider Primary Care Provi jaycee Niurka Gotti MD Unavailable Encounter Details Date Type Department Care Team (Late st Contact Info) Description 02/02/2023 Abstract [facility] [address] [facility] [address] [place] [id number] Herve Bronson, DO [address] [facility] [address] [place] [address] Social History Tobacco Use Types Packs/Day Years Used Date Smoking Tobacco: Never Smokeless Tobacco: Never Tobacco Cessation:Counseling Given: Not Answered Alcohol Use Standard Drinks/Week Comments Never 0 (1 standard drink = 0.6 oz pur e alcohol) AUDIT-C Answer Date Recorded Q1: How often do you have a drink containing alcohol? Never 02/03/2023 Q2: How many drinks containi ng alcohol do you have on a typical day when you are drinking? Patient does not drink Q3: How often do you have si x or more drinks on one occasion? Never 02/03/2023 PHQ-2 Answer Date Recorded Patient Health Questionnaire-2 Score 0 02/03/2023 Comments Unknown Sex and Gender Information Value Date Recorded Sex Assigned at Female 12/08/2022 3:59 PM EDT Legal Sex Female 8:06 PM EDT Gender Identity Female 12/08/2022 3:59 PM EDT Sexual Orientation Straight 12/08/2022 3: 59 PM EDT COVID-19 Exposure Response Date Recorded In the last 10 days, have yo u been in contact with someone who was confirmed or suspected to have Coronavirus/COVID-19? No / Unsure 01/27/2023 10:21 AM EDT documented as of this encounter Functional Status * Audit-C Score Answer Date of Assessment Author 0 02/03/2023 1:01 PM EDT Bucky Pederson MA * Question Answer Date of Assessment Author Q1: How often do you have a drink containing alcohol? Never 02/03/2023 1:01 PM EDT Candi Pederson MA Q2: How many drinks containing alcohol do you have on a typical day when you are drinking? Patient does not drink 02/03/2023 1:01 PM EDT Candi Pederson MA Q3: How often do you have six or more drinks on one occasion? Never 02/03/2023 1:01 PM EDT Candi Pederson MA * Over the past 2 weeks, how often have you been bothered by any of the following problems? Question Answer Date of Assessment Author Little interest or pleasure in doing things Not at all 02/03/2023 1:01 PM EDT Candi Pederson MA Feeling down, depressed, or hopeless Not at all 02/03/2023 1:01 PM EDT Candi Pederson MA Patient Health Questionnaire -2 Score 0 02/03/2023 1:01 PM EDT Candi Pederson MA documented as of this encounter Plan of Treatment Upcoming Encounters Date Type Department Care Team (Late st Contact Info) Description 12/07/2024 11:30 AM EDT Office Visit [facility] [address] [place] [phone] Herve Bronson, DO [address] [place] [address] documented as of this encounter Visit Diagnoses Not on filedocumented in this encounter Care Teams Needle Grinder Relationship Specialty Start Date End Date Unallocated, [facility] [place], [address] [place] [address] PCP - General 02/03/23 Niurka Gotti MD [address] [id number] Referring Physician Family Medicine 02/03/23 documented as of this encounter
--- NOTE | 2024-11-09 09:54 | MM_ITS ---
Patient Name: JAQUAN WILLETT MR#: [id number] : 1965 Exam Date: 11/09/2024 Ordering Doctor: DR IRINA VELAZQUEZ RADIOLOGY REPORT PROCEDURE: MM TOMOSYNTHESIS SCREENING BI COMPARISON: MM TOMOSYNTHESIS SCREENING BI, 11/09/2023. MM TOMOSYNTHESIS SCREENING BI, 11/07/2022. MG MAMM SCREEN 3D HALIMA CAD, 11/06/2021. MG MAMM HALIMA SCRN W CAD DIG, 06/29/2013. INDICATIONS: Screening Calculator Name NCI Breast Cancer Risk Assessment Tool 5 Year Breast Cancer Risk 1.30% Lifetime Breast Cancer Risk 6.40% Personal Breast Cancer No Personal Ovarian Cancer No Treatments None Family Cancers Father with bone cancer at age ~50. LOCATION: [facility] BREAST COMPOSITION: There are scattered areas of fibroglandular density. FINDINGS: DIAGNOSTIC CATEGORY 1--NEGATIVE. RIGHT BREAST: No significant suspicious finding. LEFT BREAST: No significant suspicious finding. RECOMMENDATIONS: ROUTINE MAMMOGRAM AND CLINICAL EVALUATION IN 12 MONTHS. PLEASE NOTE: A NORMAL MAMMOGRAM DOES NOT EXCLUDE THE POSSIBILITY OF BREAST CANCER. A CLINICALLY SUSPICIOUS PALPABLE LUMP SHOULD BE BIOPSIED. Dictated by: Perez Palmer MD on 11/09/2024 at 14:33 Approved by: Perez Palmer MD on 11/09/2024 at 14:38
--- OUTSIDE RECORDS SUMMARY | 2024-11-09 09:54 | XMS_ITS | Encounter Summary ---
Author Organization [facility] Sys tem Address [id number] [address] [place] [address] Care Team Providers Care Pediatric Psychologist Name Role Phone Gena Flores APRN-PORTER SAMPLE CASE Primary Care Provider + Encounter Details Date Type Department Care Team (Late st Contact Info) Description 12/17/2023 Orders Only [facility] Internal Medicine - Family Medicine [address] [place] [address] Gena Flores APRNPORTER SAMPLE CASE [address] [facility] [facility] [place] [address] Social History Tobacco Use Types Packs/Day Years [...] documented as of this encounter Care Teams Pediatric Psychologist Relationship Specialty Start Date End Date Gena Flores, SOLAR SALES SPECIALIST-PORTER SAMPLE CASE [address] [place] [address] PCP - General Internal Medicine 09/16/23 03/20/24 documented as of this encounter
--- OUTSIDE RECORDS SUMMARY | 2024-11-09 09:54 | XMS_ITS | Encounter Summary ---
Author Organization [facility] Sys tem Address [id number] [address] [place] [address] Care Team Providers Care 7Th Grade Social Studies Teacher Name Role Phone Gena Flores APRN-CATERING ATTENDANT Primary Care Provider + Encounter Details Date Type Department Care Team (Late st Contact Info) Description 02/09/2024 Telephone [facility] Internal Medicine - Family Medicine [address] [place] [phone] Nithya Ha CMA Social History Tobacco Use Types Packs/Day [...] encounter Miscellaneous Notes * Telephone Encounter - Nithya Ha CMA - 02/09/2024 11:26 AM EDT Pt called was wondering what her Vit D level was? I could not find it. I see her Calcium. Does the pt have to request this specifically? Niurka use to give this to her.Please advise. * Telephone Encounter - VAZQUEZ Argueta - 02/09/2024 11:26 AM EDT Yes, this is usually an extra request during a wellness and I did offer other labs at her wellness and she wanted a few others but did not request the vitamin d. If her Vitamin D has never been low in past insurance may not cover it. If she would like me to send in for a draw to the hospital I can do that. Let me know * Telephone Encounter - Nithya Ha CMA - 02/09/2024 11:26 AM EDT I called pt and read your note. She did not request it. No she does not want a lab draw for it. Sheseen her Dexa Scan results and she will just follow up with the security engineer. documented in this encounter Plan of Treatment Not on file documented as of this encounter Visit Diagnoses Not on filedocumented in this encounter Additional Health Concerns Assessment Noted Time PHQ-9 Depression Total Score: 0 12/10/19 8:33 AM EDT documented as of this encounter Care Teams 7Th Grade Social Studies Teacher Relationship Specialty Start Date End Date Gena Flores APRN-CATERING ATTENDANT [address] [place] [address] PCP - General Internal Medicine 09/16/23 03/20/24 documented as of this encounter
--- OUTSIDE RECORDS SUMMARY | 2024-11-09 09:54 | XMS_ITS | Encounter Summary ---
Author Organization [facility] Address [address] [place] [address] Care Team Providers Care Church Supervisor Name Role Phone Leo Patel MD Unavailable [phone] Herve Bronson DO Unavailable [phone] Niurka Gotti CNP Primary Care Provider [phone] Tc Browning MD Unavailable [phone] Source Comments In the event this information is protected by the Federal Confidentiality of Alcohol and Drug AbusePatient Records regulations: The Federal rules restrict any use of the information to criminally investigate or prosecute any alcohol or drug abuse patient.[facility] Reason for Visit * Reason Comments Appointment Encounter Details Date Type Department Care Team (Late st Contact Info) Description 01/15/2024 Telephone Cardiothoracic [address] [place] [address] Tc Browning MD [address] [place] [address] Appointment Social History Tobacco Use Types Packs/Day Years Used Date Smoking Tobacco: Never Smokeless Tobacco: Never Alcohol Use Standard Drinks/Week Comments No 0 (1 standard drink = 0.6 oz pur e alcohol) Area Deprivation Index Answer Date Francois rded National Score (1-100), lower number is lower ri sk 63 11/13/2023 State Score (1-10), lower number is lower risk 4 11/13/2023 Data from: https://www.neighborhoodatlas.medicine.[facility]/. Last address used for calculation [address] 11/13/2023 Comments No Sex and Gender Information Value Date Recorded Sex Assigned at Not on file Legal Sex Female 8:06 AM EST Gender Identity Not on file Sexual Orientation Not on file documented as of this encounter Miscellaneous Notes * Telephone Encounter - Isaiah Castillo - 01/15/2024 12:52 PM EDT RECEIVED CALL FROM: Patient PATIENT INFORMATION: Name: Renata Birch : 1965 (home) [phone] (work) [phone] (cell) Email: Referring Provider: No referring provider defined for this encounter. Phone: N/A Fax: Requested Surgeon: Tc Browning M.D. Reason for appointment/diagnosis: Disorder of artery or arteriole (HCC) [I77.9] Preop cardiovascular exam [Z01.810] Bicuspid aortic valve [Q23.1] Nonrheumatic aortic valve stenosis [I35.0] Isaiah Castro January 15, 2024 12:52 PM documented in this encounter Plan of Treatment Upcoming Encounters Date Type Department Care Team (Late st Contact Info) Description 11/25/2024 1:30 PM EDT Procedure Cardiology [address] [place] [address] Dx: Aortic Valve bicuspid, mild regurgitaion- 11/25/2024 2:30 PM EDT Appointment Cardiology [address] [place] [address] Dx: Aortic Valve bicuspid, mild regurgitaion- 11/25/2024 3:45 PM EDT Office Visit Cardiology [address] [place] [address] Leo Patel MD [address] [place] [address] Dx: Aortic Valve bicuspid, mild regurgitaion- documented as of this encounter Visit Diagnoses Not on filedocumented in this encounter Care Teams Church Supervisor Relationship Specialty Start Date End Date Niurka Gotti INTERLOCKING AND SIGNAL MECHANIC [address] [place] [address] PCP - General Family Medicine 12/11/23 Leo Patel MD [address] [place] [address] Care Transition Mgr Cardiology 12/11/23 Herve Bronson DO [address] [phone] Obstetrics 12/11/23 Tc Browning MD [address] [place] [address] Surgeon Cardiac Surg 12/14/23 documented as of this encounter
--- OUTSIDE RECORDS SUMMARY | 2024-11-09 09:54 | XMS_ITS | Encounter Summary ---
Author Organization [facility] Sys tem Address [id number] [address] [place] [address] Care Team Providers Care Verifying Machine Operator Name Role Phone Sandra Gena Painter APRN-LIBRARY CLERK TALKING BOOKS Primary Care Provider + Encounter Details Date Type Department Care Team (Late st Contact Info) Description 11/11/2023 Orders Only [facility] Internal Medicine - Family Medicine [address] [place] [address] Ref Prov, [place] [address] Social History Tobacco Use Types Packs/Day Years [...] to get more. Never True 11/22/2022 Comments No Sex and Gender Information Value Date Recorded Sex Assigned at Female 11/25/2022 11:59 AM EDT Legal Sex Female 11:31 AM EDT Gender Identity Female 11/25/2022 11:59 AM EDT Sexual Orientation Straight 11/25/2022 11 :59 AM EDT documented as of this encounter Plan of Treatment Not on file documented as of this encounter Procedures Procedure Name Priority Date/Time Associated Diagnosis Comments MAMMOGRAPHY Routine 11/09/2023 10:02 AM EDT documented in this encounter Results * HM MAMMOGRAPHY (11/09/2023 10:02 AM EDT) Anatomical Region Laterality Modality Other us Not In System Ref Prov HEALTH MAINTENANCE Final Result documented in this encounter Visit Diagnoses Not on filedocumented in this encounter Additional Health Concerns Assessment Noted Time PHQ-9 Depression Total Score: 0 11/26/19 23 8:07 AM EDT documented as of this encounter Care Teams Verifying Machine Operator Relationship Specialty Start Date End Date Gena Flores APRN-LIBRARY CLERK TALKING BOOKS [address] [place] [address] PCP - General Internal Medicine 09/16/23 03/20/24 documented as of this encounter
== END 2024-11-09 09:53 | disposition home or self-care (01) ==
LOC: MAMMO 09:52
PROVIDERS: PCP Family Medicine; Visit Provider Obstetrics & Gynecology
DX: Z12.31 Encounter for screening mammogram for malignant neoplasm of breast (principal); Z80.8 Family history of malignant neoplasm of other organs or systems
CPT/HCPCS: 77063; 77067